=== PATIENT | female | born 1975 | race African-American/Black ===

== ENCOUNTER 2019-12-04 11:26 | Outpatient (CLI) | payer BC, SELFPAY ==
[2019-12-04 12:22] LABS: Hematocrit 41.5 % (37.0-47.0); Hemoglobin 13.6 g/dL (12.0-15.0); Mean Corpuscular HGB Conc 32.8 g/dl (32-36); Mean Corpuscular Hemoglobin 29.7 pg (26-34); Mean Corpuscular Volume 90.6 fl (80-100); Mean Platelet Volume 10.1 fl (7.4-10.4); Platelet Count Result 346 k/mm3 (150-375); Red Blood Count 4.58 M/mm3 (4.2-5.4); Red Cell Distribution Width 13.6 % (11.5-14.5); White Blood Count 6.3 K/mm3 (4.5-10.0)
[2019-12-04 12:33] LABS: Alanine Aminotransferase 12 U/L (4-35); Albumin Level 4.1 g/dL (3.5-5.1); Alkaline Phosphatase 67 U/L (38-126); Aspartate Amino Transferase 19 U/L (14-36); Bilirubin,Total 0.5 mg/dL (0.2-1.3); Blood Urea Nitrogen 12 mg/dL (7-17); Calcium 9.3 mg/dL (8.4-10.2); Carbon Dioxide 26 mmol/L (22-30); Chloride 101 mmol/L (98-107); Cholesterol 225 mg/dL (0-200); Estimated Glomerular Filt Rate > 60; Glucose 86 mg/dL (65-105); HDL Direct 53 mg/dL; Potassium 4.3 mmol/L (3.4-5.0); Sodium 135 mmol/L (137-145); Triglycerides 70 mg/dL (<150)
[2019-12-04 12:44] LABS: LDL Cholesterol Direct 149 mg/dL
[2019-12-04 13:03] LABS: Thyroid Stimulating Hormone 0.398 uIU/mL (0.465-4.680); Total Triiodothyronine (T3) 0.86 NG/ML (0.97-1.69)
[2019-12-04 13:22] LABS: Free T4 Free Thyroxine 1.53 ng/mL (0.78-2.19); Vitamin D 25 Hydroxy 25.7 ng/mL
== END 2019-12-04 11:27 | disposition home or self-care (01) ==
LOC: ANHLAB 11:28
PROVIDERS: PCP Family Medicine; Visit Provider Family Medicine
DX: Z00.00 Encounter for general adult medical examination without abnormal findings (principal); E03.9 Hypothyroidism, unspecified; E55.9 Vitamin D deficiency, unspecified
CPT/HCPCS: 36415; 80053; 80061; 82306; 84439; 84443; 84480; 85027

== ENCOUNTER 2020-07-17 09:32 | Outpatient (CLI) | payer BC, SELFPAY ==
[2020-07-17 10:32] LABS: Free T4 Free Thyroxine 0.71 ng/mL (0.78-2.19)
== END 2020-07-17 09:33 | disposition home or self-care (01) ==
PROVIDERS: PCP Family Medicine; Visit Provider Physician Assistant
DX: E03.9 Hypothyroidism, unspecified (principal); E04.9 Nontoxic goiter, unspecified
CPT/HCPCS: 36415; 84439; 84443

== ENCOUNTER 2020-09-11 10:23 | Outpatient (CLI) | payer BC, SELFPAY ==
[2020-09-11 11:43] LABS: Total Triiodothyronine (T3) 0.76 NG/ML (0.97-1.69)
[2020-09-11 11:48] LABS: Free T4 Free Thyroxine 1.29 ng/mL (0.78-2.19)
== END 2020-09-11 10:24 | disposition home or self-care (01) ==
PROVIDERS: PCP Family Medicine; Visit Provider Physician Assistant
DX: E03.9 Hypothyroidism, unspecified (principal)
CPT/HCPCS: 36415; 84439; 84443; 84480

== ENCOUNTER 2021-03-30 13:46 | Outpatient (CLI) | payer BC, SELFPAY ==
[2021-03-30 15:03] LABS: Total Triiodothyronine (T3) 0.84 NG/ML (0.97-1.69)
[2021-03-30 15:50] LABS: Free T4 Free Thyroxine Reflex 0.77 ng/dL (0.78-2.19)
== END 2021-03-30 13:47 | disposition home or self-care (01) ==
PROVIDERS: PCP Family Medicine; Visit Provider Family Medicine
DX: E03.9 Hypothyroidism, unspecified (principal)
CPT/HCPCS: 36415; 84439; 84443; 84480

== ENCOUNTER 2021-06-29 11:20 | Outpatient (CLI) | payer BC, SELFPAY ==
[2021-06-29 11:36] LABS: Basophils Percent Auto 0.6 % (0.2-1.2); Eosinophils Absolute Auto 0.1 K/mm3 (0-0.3); Eosinophils Percent Auto 0.7 % (0-4.4); Hematocrit 43.3 % (37.0-47.0); Hemoglobin 14.4 g/dL (12.0-15.0); Immature Granulocyte Absolute 0.01 K/mm3 (0.00-0.031); Immature Granulocyte Percent A 0.1 % (0-0.5); Lymphocytes Absolute Auto 1.83 K/mm3 (0.9-3.2); Lymphocytes Percent Auto 26.8 % (18.3-44.2); Mean Corpuscular HGB Conc 33.3 g/dl (32-36); Mean Corpuscular Hemoglobin 31.4 pg (26-34); Mean Corpuscular Volume 94.3 fl (80-100); Mean Platelet Volume 9.5 fl (7.4-10.4); Monocytes Absolute Auto 0.5 K/mm3 (0.1-0.6); Monocytes Percent Auto 6.6 % (2.6-8.5); Neutrophils Absolute Auto 4.5 K/mm3 (1.3-6.7); Neutrophils Percent Auto 65.2 % (45.5-73.1); Platelet Count Result 341 k/mm3 (150-375); Red Blood Count 4.59 M/mm3 (4.2-5.4); Red Cell Distribution Width 13.7 % (11.5-14.5); White Blood Count 6.8 K/mm3 (4.5-10.0)
[2021-06-29 11:49] LABS: Alanine Aminotransferase 15 U/L (4-35); Albumin Level 4.2 g/dL (3.5-5.1); Alkaline Phosphatase 69 U/L (38-126); Anion Gap 5 mmol/L (8-16); Aspartate Amino Transferase 21 U/L (14-36); Bilirubin,Total 0.5 mg/dL (0.2-1.3); Blood Urea Nitrogen 14 mg/dL (7-17); Calcium 9.2 mg/dL (8.4-10.2); Carbon Dioxide 26 mmol/L (22-30); Chloride 103 mmol/L (98-107); Cholesterol 251 mg/dL (0-200); Estimated Glomerular Filt Rate > 60; Glucose 87 mg/dL (65-110); HDL Direct 97 mg/dL; Sodium 134 mmol/L (137-145); Triglycerides 84 mg/dL (<150)
[2021-06-29 12:00] LABS: LDL Cholesterol Direct 116 mg/dL
[2021-06-29 12:46] LABS: Free T4 Free Thyroxine 1.45 ng/mL (0.78-2.19)
== END 2021-06-29 11:21 | disposition home or self-care (01) ==
LOC: ANHLAB 11:23
PROVIDERS: PCP Family Medicine; Visit Provider Physician Assistant
DX: E03.9 Hypothyroidism, unspecified (principal); I10 Essential (primary) hypertension; Z13.220 Encounter for screening for lipoid disorders
CPT/HCPCS: 36415; 80053; 80061; 84439; 84443; 84480; 85025

== ENCOUNTER 2021-09-21 09:04 | Outpatient (CLI) | payer BC, SELFPAY ==
[2021-09-21 09:29] LABS: Anion Gap 8 mmol/L (8-16); Blood Urea Nitrogen 15 mg/dL (7-17); Calcium 8.9 mg/dL (8.4-10.2); Carbon Dioxide 25 mmol/L (22-30); Chloride 101 mmol/L (98-107); Estimated Glomerular Filt Rate > 60; Glucose 83 mg/dL (65-110); Potassium 4.1 mmol/L (3.4-5.0); Sodium 134 mmol/L (137-145)
[2021-09-21 09:45] LABS: Free T4 Free Thyroxine 1.74 ng/mL (0.78-2.19)
[2021-09-21 10:01] LABS: Thyroid Stimulating Hormone 0.152 uIU/mL (0.465-4.680); Total Triiodothyronine (T3) 0.91 NG/ML (0.97-1.69)
== END 2021-09-21 09:05 | disposition home or self-care (01) ==
LOC: ANHLAB 09:06
PROVIDERS: PCP Family Medicine; Visit Provider Family Medicine
DX: E87.1 Hypo-osmolality and hyponatremia (principal); E03.9 Hypothyroidism, unspecified
CPT/HCPCS: 36415; 80048; 84439; 84443; 84480

== ENCOUNTER 2022-10-06 09:03 | Outpatient (CLI) | payer BC, SELFPAY ==
[2022-10-06 09:38] LABS: Basophils Percent Auto 0.5 % (0.2-1.2); Eosinophils Absolute Auto 0.1 K/mm3 (0-0.3); Eosinophils Percent Auto 1.1 % (0-4.4); Hematocrit 39.5 % (37.0-47.0); Hemoglobin 13.3 g/dL (12.0-15.0); Immature Granulocyte Percent A 1.2 % (0-0.5); Lymphocytes Absolute Auto 1.45 K/mm3 (0.9-3.2); Lymphocytes Percent Auto 17.1 % (18.3-44.2); Mean Corpuscular HGB Conc 33.7 g/dl (32-36); Mean Corpuscular Hemoglobin 30.3 pg (26-34); Mean Platelet Volume 9.3 fl (7.4-10.4); Monocytes Absolute Auto 0.7 K/mm3 (0.1-0.6); Monocytes Percent Auto 7.9 % (2.6-8.5); Neutrophils Absolute Auto 6.1 K/mm3 (1.3-6.7); Neutrophils Percent Auto 72.2 % (45.5-73.1); Platelet Count Result 340 k/mm3 (150-375); Red Blood Count 4.39 M/mm3 (4.2-5.4); Red Cell Distribution Width 13.5 % (11.5-14.5); White Blood Count 8.5 K/mm3 (4.5-10.0)
[2022-10-06 09:46] LABS: Alanine Aminotransferase 14 U/L (6-35); Albumin Level 3.9 g/dL (3.5-5.1); Alkaline Phosphatase 66 U/L (38-126); Anion Gap 0 mmol/L (8-16); Aspartate Amino Transferase 20 U/L (14-36); Bilirubin,Total 0.8 mg/dL (0.2-1.3); Blood Urea Nitrogen 14 mg/dL (7-17); Calcium 8.3 mg/dL (8.4-10.2); Carbon Dioxide 29 mmol/L (22-30); Chloride 105 mmol/L (98-107); Cholesterol 222 mg/dL (0-200); Estimated Glomerular Filt Rate > 60; Glucose 85 mg/dL (65-110); HDL Direct 69 mg/dL; Hemoglobin A1C 4.9 % (<5.7); Potassium 4.3 mmol/L (3.4-5.0); Sodium 134 mmol/L (137-145); Triglycerides 87 mg/dL (<150)
[2022-10-06 09:57] LABS: LDL Cholesterol Direct 109 mg/dL
[2022-10-06 14:14] LABS: Total Triiodothyronine (T3) 1.18 NG/ML (0.97-1.69)
== END 2022-10-06 09:04 | disposition home or self-care (01) ==
LOC: ANHLAB 09:05
PROVIDERS: PCP Family Medicine; Visit Provider Physician Assistant
DX: E03.9 Hypothyroidism, unspecified (principal); Z68.34 Body mass index [BMI] 34.0-34.9, adult; Z13.220 Encounter for screening for lipoid disorders
CPT/HCPCS: 36415; 80053; 80061; 83036; 84439; 84443; 84480; 85025

== ENCOUNTER 2023-08-08 16:39 | Outpatient (CLI) | payer BC, SELFPAY ==
[2023-08-08 19:38] LABS: Total Triiodothyronine (T3) 1.24 NG/ML (0.97-1.69)
== END 2023-08-08 16:40 | disposition home or self-care (01) ==
LOC: ANHLAB 16:41
PROVIDERS: PCP Family Medicine; Visit Provider Physician Assistant
DX: E03.9 Hypothyroidism, unspecified (principal)
CPT/HCPCS: 36415; 84439; 84443; 84480

== ENCOUNTER 2023-09-11 11:21 | Outpatient (CLI) | payer BC, SELFPAY ==
[2023-09-11 12:42] LABS: Alanine Aminotransferase 15 U/L (6-35); Albumin Level 4.2 g/dL (3.5-5.1); Alkaline Phosphatase 53 U/L (38-126); Anion Gap 7 mmol/L (8-16); Aspartate Amino Transferase 20 U/L (14-36); Bilirubin,Total 0.8 mg/dL (0.2-1.3); Blood Urea Nitrogen 16 mg/dL (7-17); Calcium 8.7 mg/dL (8.4-10.2); Carbon Dioxide 22 mmol/L (22-30); Chloride 107 mmol/L (98-107); Cholesterol 219 mg/dL (0-200); Estimated Glomerular Filt Rate > 60; Glucose 83 mg/dL (65-110); HDL Direct 56 mg/dL; Potassium 3.7 mmol/L (3.4-5.0); Sodium 136 mmol/L (137-145); Triglycerides 66 mg/dL (<150)
[2023-09-11 12:44] LABS: Basophils Percent Auto 0.6 % (0.2-1.2); Eosinophils Absolute Auto 0.1 K/mm3 (0-0.3); Eosinophils Percent Auto 1.1 % (0-4.4); Hematocrit 41.3 % (37.0-47.0); Hemoglobin 13.2 g/dL (12.0-15.0); Immature Granulocyte Absolute 0.01 K/mm3 (0.00-0.031); Immature Granulocyte Percent A 0.1 % (0-0.5); Immature Platelet Fraction Pct 9.1 % (0.9-11.2); Lymphocytes Absolute Auto 1.63 K/mm3 (0.9-3.2); Lymphocytes Percent Auto 22.7 % (18.3-44.2); Mean Corpuscular Hemoglobin 29.7 pg (26-34); Mean Corpuscular Volume 92.8 fl (80-100); Mean Platelet Volume 11.5 fl (7.4-10.4); Monocytes Absolute Auto 0.5 K/mm3 (0.1-0.6); Monocytes Percent Auto 7.2 % (2.6-8.5); Neutrophils Absolute Auto 4.9 K/mm3 (1.3-6.7); Neutrophils Percent Auto 68.3 % (45.5-73.1); Platelet Count Result 254 k/mm3 (150-375); Red Blood Count 4.45 M/mm3 (4.2-5.4); White Blood Count 7.2 K/mm3 (4.5-10.0)
[2023-09-11 12:54] LABS: LDL Cholesterol Direct 121 mg/dL
[2023-09-11 13:01] LABS: Free T4 Free Thyroxine 1.59 ng/mL (0.78-2.19)
[2023-09-11 13:07] LABS: Anisocytosis 2+ (NORMAL); Platelet Estimate Adequate (Adequate)
[2023-09-11 13:08] LABS: Microcytosis 2+ (NORMAL); Schistocytes None Seen (NORMAL)
[2023-09-14 09:20] LABS: Triiodothyronine T3 Free 2.6 pg/mL (2.3-4.2)
== END 2023-09-11 11:22 | disposition home or self-care (01) ==
LOC: ANHLAB 11:22
PROVIDERS: PCP Family Medicine; Visit Provider Physician Assistant
DX: E03.9 Hypothyroidism, unspecified (principal); Z13.220 Encounter for screening for lipoid disorders; Z68.34 Body mass index [BMI] 34.0-34.9, adult
CPT/HCPCS: 36415; 80053; 80061; 84439; 84443; 84481; 85025; 85055

== ENCOUNTER 2024-08-07 12:55 | Outpatient (CLI) | payer BC, SELFPAY ==
--- NOTE | ~2024-08-07 | US_ITS ---
EXAMINATION: US thyroid DATE: 08/07/2024 13:38 INDICATION: Hypothyroidism, unspecified. TECHNIQUE: Multiple ultrasound images of the thyroid were obtained. COMPARISON: None. FINDINGS: The right thyroid lobe measures 4.1 x 1.2 x 1.1 cm. The left thyroid lobe measures 3.7 x 1.2 x 1.4 c m. The thyroid demonstrates heterogeneous echogenicity and increased vascularity. No discrete nodule . IMPRESSION: 1. Heterogeneous, hypervascular thyroid, consistent with chronic lymphocytic (Thor) thyroiditis. Reviewed, dictated and finalized at location A. IMPRESSION: 1. Heterogeneous, hypervascular thyroid, consistent with chronic lymphocytic (H ashimoto) thyroiditis.
== END 2024-08-07 12:56 | disposition home or self-care (01) ==
LOC: ANHIMG 12:59
PROVIDERS: PCP Family Medicine; Visit Provider Student in an Organized Health Care Education/Training Program
DX: E03.9 Hypothyroidism, unspecified (principal)
CPT/HCPCS: 76536

== ENCOUNTER 2024-08-28 09:07 | Outpatient (CLI) | payer BC, SELFPAY ==
[2024-08-28 09:36] LABS: Basophils Absolute Auto 0.1 K/mm3 (0.0-0.1); Basophils Percent Auto 0.7 % (0.2-1.2); Eosinophils Absolute Auto 0.1 K/mm3 (0-0.3); Eosinophils Percent Auto 1.3 % (0-4.4); Hematocrit 39.7 % (37.0-47.0); Hemoglobin 13.1 g/dL (12.0-15.0); Immature Granulocyte Absolute 0.02 K/mm3 (0.00-0.031); Immature Granulocyte Percent A 0.3 % (0-0.5); Lymphocytes Absolute Auto 1.43 K/mm3 (0.9-3.2); Lymphocytes Percent Auto 20.9 % (18.3-44.2); Mean Corpuscular Hemoglobin 29.4 pg (26-34); Mean Platelet Volume 9.6 fl (7.4-10.4); Monocytes Absolute Auto 0.5 K/mm3 (0.1-0.6); Monocytes Percent Auto 6.7 % (2.6-8.5); Neutrophils Absolute Auto 4.8 K/mm3 (1.3-6.7); Neutrophils Percent Auto 70.1 % (45.5-73.1); Platelet Count Result 364 k/mm3 (150-375); Red Blood Count 4.46 M/mm3 (4.2-5.4); Red Cell Distribution Width 15.1 % (11.5-14.5); White Blood Count 6.8 K/mm3 (4.5-10.0)
[2024-08-28 09:47] LABS: Alanine Aminotransferase 12 U/L (6-35); Albumin Level 4.1 g/dL (3.5-5.1); Alkaline Phosphatase 70 U/L (38-126); Anion Gap 7 mmol/L (4-12); Aspartate Amino Transferase 17 U/L (14-36); Bilirubin,Total 0.6 mg/dL (0.2-1.3); Blood Urea Nitrogen 16 mg/dL (7-17); Calcium 8.7 mg/dL (8.4-10.2); Carbon Dioxide 25 mmol/L (22-30); Chloride 105 mmol/L (98-107); Cholesterol 219 mg/dL (0-200); Estimated Glomerular Filt Rate > 60; Glucose 81 mg/dL (65-110); HDL Direct 73 mg/dL; Potassium 4.1 mmol/L (3.4-5.0); Sodium 137 mmol/L (137-145); Triglycerides 82 mg/dL (<150)
[2024-08-28 09:58] LABS: LDL Cholesterol Direct 108 mg/dL
[2024-08-28 10:17] LABS: Thyroid Stimulating Hormone 0.552 uIU/mL (0.465-4.680)
[2024-08-28 10:50] LABS: Free T4 Free Thyroxine 1.22 ng/mL (0.78-2.19)
[2024-09-02 01:04] LABS: Vitamin D 1,25 (OH)2 Total 43 pg/mL (18-72); Vitamin D2 1,25 (OH)2 <8 pg/mL; Vitamin D3 1,25 (OH)2 43 pg/mL
[2024-09-03 11:13] LABS: Thyroid Peroxidase Antibodies 364 IU/mL (<9)
== END 2024-08-28 09:08 | disposition home or self-care (01) ==
LOC: ANHLAB 09:08
PROVIDERS: PCP Family Medicine; Visit Provider Student in an Organized Health Care Education/Training Program
DX: E03.9 Hypothyroidism, unspecified (principal); R63.5 Abnormal weight gain; Z13.220 Encounter for screening for lipoid disorders; E55.9 Vitamin D deficiency, unspecified; I10 Essential (primary) hypertension
CPT/HCPCS: 36415; 80053; 80061; 82652; 83036; 84439; 84443; 85025; 86376

== ENCOUNTER 2025-08-20 08:37 | Outpatient (CLI) | payer BC, SELFPAY ==
--- OUTSIDE RECORDS SUMMARY | 2025-08-20 09:03 | XMS_ITS | Clinical Summary ---
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 Gender Identity Not on file Sexual Orientation Not on file Plan of Treatment Health Maintenance Due Date Last Done Comments Cervical Cancer Screening 1977 Colon Cancer Screening-Colonoscopy 1977 Depression Screening 1977 Hepatitis C Screening 1977 DTaP/Tdap/Td Vaccine (1 - Tdap) 1988 Hepatitis B Screening 1995 Regular Well Visit/Exam 18-64 1995 Covid-19 Vaccine ( season) 2025 02/04/2021, 01/15/2021 Influenza Vaccine (#1) 2025 Breast Cancer Screening-Mammogram 08/09/2025 08/09/2024, 09/21/2023, 08/28/2020, Additional history exists Pneumococcal vaccine <65 Aged Out No longer eligible based on patient's age to complete this topic Procedures Procedure Name Priority Date/Time Associated Diagnosis Comments DIAGNOSTIC MAMMOGRAM BILATERAL W LUL Schedule Routine, Read Routine (OP Routine) 08/09/2024 10:04 AM CDT Mass of left breast, unspecified quadrant from Last 3 Months or Most Recently Relevant to Health Maintenance Results * Diagnostic Mammogram Bilateral W Lul (08/09/2024 10:04 AM CDT) Anatomical Region Laterality Modality Breast Bilateral Mammography 08/09/2024 10:2 8 AM CDT Impressions 08/09/2024 10:28 AM CDT Overall final assessment: BI-RADS Category 2: Benign No mammographic or sonographic evidence of malignancy. Stable changes of bilateral reduction mammoplasty Electronically signed by: Shania Dye M.D. Narrative 08/09/2024 10:28 AM CDT EXAM: Bilateral 3-D tomosynthesis diagnostic mammogram, limited left breast ultrasound HISTORY: Palpable lump left breast. History of reduction mammoplasty in 2019 COMPARISON: Bilateral mammograms dating back to 2017 FINDINGS: Bilateral 3-D tomosynthesis diagnostic mammogram and limited left breast ultrasound was performed. BB marker overlies the palpable lump along the posterior left breast at 7-8 o'clock. The breasts are heterogeneously dense, which may obscure small masses. There are stable postoperative changes in both breasts. There is no new suspicious mass. Calcifications of fat necrosis are developing in the posterior lower outer right breast. Sonography of the palpable abnormality left breast 8:00 at 8 cm from the nipple shows normal fibroglandular breast elements. Clinical follow-up is recommended. Unless a new clinical problem arises, annual screening mammography is recommended. These results were conveyed to the patient at the time of the study. Mandie VELEZ IMG MAMMO PROCEDURES Final Result from Last 3 Months or Most Recently Relevant to Health Maintenance Insurance [facility] BLUE ACCESS NM BLUE ACCESS NM BLUE ACCESS NM Care Teams Interventional Cardiologist Relationship Specialty Start Date End Date Latesha Espana MD [address] [facility] [address] [place] [address] PCP - General Family Medicine 09/20/23
--- OUTSIDE RECORDS SUMMARY | 2025-08-20 09:03 | XMS_ITS | Clinical Summary ---
Author Organization [facility] Address [address] [place] [address] Care Team Providers Care Data Architect Name Role Phone Latesha Espana MD Primary Care Provider + Source Comments [facility],non-owned Affiliates and Associated Physician Practices is amultiple site organization consisting of ambulatory clinics and hospital sitesin [place], [place]. This disclosure is being madepursuant to the Care Everywhere program and may not contain all information available regarding this patient. Last updated 18.[facility] Allergies No known active allergies Medications * Be aware that medications may not be up to date on this document. Alwaysverify current medications with the patient. vitamin D, ergocalciferol, (DRISDOL) 1.25 MG (19358 UT) capsule Take 50,000 Units by mouth every 30 days Active levothyroxine (SYNTHROID) 100 MCG tablet Take 1 tablet by mouth daily before breakfast 30 tablet 9 Active polyethylene glycol 3350 (MIRALAX) powder Take 17 g by mouth once daily 238 g 9 Active Active Problems Problem Noted Date Diagnosed Date Fecal impaction 09/15/2019 Resolved Problems Problem Noted Date Diagnosed Date Resolved Date Constipation 09/15/2019 10/13/2019 Social History Tobacco Use Types Packs/Day Years Used Date Smoking Tobacco: Never Smokeless Tobacco: Never Alcohol Use Standard Drinks/Week Comments Yes 0 (1 standard drink = 0.6 oz pur e alcohol) socially Comments No Sex and Gender Information Value Date Recorded Sex Assigned at Not on file 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 Gender Identity Not on file Sexual Orientation Not on file Last Filed Vital Signs Vital Sign Reading Time Taken Comments Blood Pressure 103/85 09/19/2019 4:55 PM ULTRASONIC HAND SOLDERER Pulse 83 09/19/2019 4:55 PM ULTRASONIC HAND SOLDERER Temperature 36.7 C (98 F) 09/19/2019 2:23 PM ULTRASONIC HAND SOLDERER Respiratory Rate 10 09/19/2019 4:50 PM ULTRASONIC HAND SOLDERER Oxygen Saturation 99% 09/19/2019 4:55 PM ULTRASONIC HAND SOLDERER Inhaled Oxygen Concentration - - Weight 108.9 kg (240 lb) 09/15/2019 11:37 AM ULTRASONIC HAND SOLDERER Height 167.6 cm (5' 6) 09/15/2019 11:37 AM ULTRASONIC HAND SOLDERER Body Mass Index 38.74 09/15/2019 11:37 AM ULTRASONIC HAND SOLDERER Plan of Treatment Health Maintenance Due Date Last Done Comments COLOGUARD (AGES 45-75) - COL ON CA SCREENING 1977 CT COLONOGRAPHY - COLON CA SCREENING 1977 FIT - COLON CA SCREENING 1977 FLEX SIG - COLON CA SCREENING 1977 LIPID TESTING 1977 MAMMOGRAM 1977 HIV SCREENING 1992 HEPATITIS C SCREENING 05/05/1995 DTAP/TDAP/TD VACCINES (1 - Tdap) 1996 HEPATITIS B VACCINE (1 of 3 - 19+ 3-dose series) 1996 DEPRESSION SCREENING 11/06/2024 COVID-19 VACCINE (1 - 2023-2 5 season) 2025 INFLUENZA VACCINE (#1) 2025 ZOSTER VACCINE (1 of 2) 2027 COLON MONITORING 09/19/2029 09/19/2019, 09/19/2019, 09/19/2019 COLONOSCOPY - COLON CA SCREENING 09/19/2029 09/19/2019, 09/19/2019, 09/19/2019 Colorectal Cancer Screening 09/19/2029 HIB VACCINE Aged Out No longer eligi ble based on patient's age to complete this topic HPV VACCINE Aged Out No longer eligi ble based on patient's age to complete this topic MENINGOCOCCAL (Group B) VACCINE SHARED DECISION-MAKING Aged Out No longer eligible based on patient's age to complete this topic MENINGOCOCCAL GROUPS A/C/Y/W VACCINE Aged Out No longer eligible b ased on patient's age to complete this topic PNEUMOCOCCAL VACCINE Aged Out No long er eligible based on patient's age to complete this topic Procedures Procedure Name Priority Date/Time Associated Diagnosis Comments ENDOSCOPY, COLON, DIAGNOSTIC Routine 09/19/2019 3:54 PM ULTRASONIC HAND SOLDERER from Last 3 Months or Most Recently Relevant to Health Maintenance Results * ENDOSCOPY, COLON, DIAGNOSTIC (09/19/2019 3:54 PM ULTRASONIC HAND SOLDERER) Report Endoscopy POC _ Patient Name: Kellen Pierce Procedure Date: 09/19/2019 3:54 PM Date of : 1975 Admit Type: Outpatient Age: 44 Gender: Female Ethnicity: Not or Race: Black or Attending MD: William Masterson , _ Procedure: Colonoscopy Indications: Hematochezia, Abnormal CT of the GI tract, Rectal pain Providers: William Masterson (Doctor), Nadia Mendoza Patient Profile: 44F presents for evaluation of rectal bleeding, stool impaction. no prior exams Referring MD: Latesha Espana MD (Referring MD) Medicines: Monitored Anesthesia Care Complications: No immediate complications. _ Procedure: Pre-Anesthesia Assessment: - Prior to the procedure, a History and Physical was performed, and patient medications and allergies were reviewed. The patient's tolerance of previous anesthesia was also reviewed. The risks and benefits of the procedure and the sedation options and risks were discussed with the patient. All questions were answered, and informed consent was obtained. Prior Anticoagulants: The patient has taken no previous anticoagulant or antiplatelet agents. ASA Grade Assessment: II - A patient with mild systemic disease. After reviewing the risks and benefits, the patient was deemed in satisfactory condition to undergo the procedure. After I obtained informed consent, the scope was passed under direct vision. Throughout the procedure, the patient's blood pressure, pulse, and oxygen saturations were monitored continuously. The Colonoscope was introduced through the anus and advanced to the cecum, identified by appendiceal orifice and ileocecal valve. The colonoscopy was performed without difficulty. The patient tolerated the procedure well. The quality of the bowel preparation was fair. The ileocecal valve, appendiceal orifice, and rectum were photographed. Impression: - Preparation of the colon was fair. - Mucosal ulceration. Biopsied. - The examination was otherwise normal. Findings: The perianal and digital rectal examinations were normal. Discontinuous areas of nonbleeding ulcerated mucosa were present in the rectum. Biopsies were taken with a cold forceps for histology. The exam was otherwise without abnormality. _ Recommendation: - Patient has a contact number available for emergencies. The signs and symptoms of potential delayed complications were discussed with the patient. Return to normal activities tomorrow. Written discharge instructions were provided to the patient. - Resume previous diet. - Continue present medications. - Await pathology results. - Repeat colonoscopy in 3 years for screening purposes. Procedure Code(s): --- Professional --- 16352, Colonoscopy, flexible; with biopsy, single or multiple --- Technical --- 12219, Colonoscopy, flexible; with biopsy, single or multiple Diagnosis Code(s): --- Professional --- K63.3, Ulcer of intestine K92.1, Melena (includes Hematochezia) K62.89, Other specified diseases of anus and rectum R93.3, Abnormal findings on diagnostic imaging of other parts of digestive tract --- Technical --- K63.3, Ulcer of intestine K92.1, Melena (includes Hematochezia) K62.89, Other specified diseases of anus and rectum R93.3, Abnormal findings on diagnostic imaging of other parts of digestive tract CPT copyright 2017 [employer]. All rights reserved. The codes documented in this report are preliminary and upon corporate human resources manager review may be revised to meet current compliance requirements. William Masterson, 09/19/2019 4:28:27 PM This report has been signed electronically. Number of Addenda: 0 Note Initiated On: 09/19/2019 3:54 PM [facility] ENDOSCOPY 09/19/2019 3:54 PM ULTRASONIC HAND SOLDERER Narrative Procedure Note William Masterson MD - 09/19/2019 4:28 PM CST Colonoscopy Small amount residual stool Ulcers in rectum s/p bx Suspect stercoral ulcers miralax qd Resume diet as tolerated otherwise us William Masterson MD GI PROCEDURE ORDERABLES Edited R esult - Final [facility] ENDOSCOPY from Last 3 Months or Most Recently Relevant to Health Maintenance Insurance ANTHELFEGO ANTHEM ANTHEM Advance Directives * Full Code (Latest Code Status on File) Date Activated Date Inactivated Comments 09/15/2019 7:50 PM 09/19/2019 8:02 PM * Full Code Date Activated Date Inactivated Comments 09/15/2019 5:55 PM 09/15/2019 7:50 PM Care Teams Data Architect Relationship Specialty Start Date End Date Latesha Espana MD [address] [facility] [address] [facility] [address] [place] [address] PCP - General Family Medicine 10/05/18
[2025-08-20 09:07] LABS: Hematocrit 39.8 % (37.0-47.0); Hemoglobin 13.1 g/dL (12.0-15.0); Immature Granulocyte Percent A 0.2 % (0-0.5); Lymphocytes Absolute Auto 1.43 K/mm3 (0.9-3.2); Mean Corpuscular HGB Conc 32.9 g/dl (32-36); Mean Corpuscular Hemoglobin 28.8 pg (26-34); Mean Corpuscular Volume 87.5 fl (80-100); Nucleated Red Blood Cells Absolute Auto 0.000 K/mm3 (0.0-0.012); Nucleated Red Blood Cells Perc 0.0 % (0.0-0.2); Platelet Count Result 390 k/mm3 (150-375); Red Blood Count 4.55 M/mm3 (4.2-5.4); White Blood Count 5.9 K/mm3 (4.5-10.0)
[2025-08-20 09:31] LABS: Alanine Aminotransferase 14 U/L (6-35); Albumin Level 4.0 g/dL (3.5-5.1); Alkaline Phosphatase 70 U/L (38-126); Anion Gap 6 mmol/L (4-12); Aspartate Amino Transferase 25 U/L (14-36); Bilirubin,Total 0.4 mg/dL (0.2-1.3); Blood Urea Nitrogen 15 mg/dL (7-17); Calcium 9.0 mg/dL (8.4-10.2); Carbon Dioxide 26 mmol/L (22-30); Chloride 103 mmol/L (98-107); Cholesterol 215 mg/dL (0-200); Estimated Glomerular Filt Rate 55; Glucose 85 mg/dL (65-110); HDL Direct 59 mg/dL; Potassium 3.8 mmol/L (3.4-5.0); Sodium 135 mmol/L (137-145); Total Protein 7.1 g/dL (6.3-8.2); Triglycerides 77 mg/dL (<150)
[2025-08-20 10:06] LABS: Thyroid Stimulating Hormone 0.823 uIU/mL (0.465-4.680)
[2025-08-20 10:08] LABS: Hemoglobin A1C 4.6 % (<5.7)
[2025-08-20 12:47] LABS: Free T4 Free Thyroxine 1.86 ng/dL (0.78-2.19)
== END 2025-08-20 08:38 | disposition home or self-care (01) ==
LOC: ANHLAB 08:39
PROVIDERS: PCP Family Medicine; Visit Provider Student in an Organized Health Care Education/Training Program
DX: E66.01 Morbid (severe) obesity due to excess calories (principal); E03.9 Hypothyroidism, unspecified; I10 Essential (primary) hypertension; E78.5 Hyperlipidemia, unspecified
CPT/HCPCS: 36415; 80053; 80061; 83036; 84439; 84443; 85025